=== PATIENT | female | born 1965 | race Two or more races ===

== ENCOUNTER 2017-03-21 08:29 | Emergency (ER) | payer OTHER ==
[~2017-03-21] VITALS: Ht 170.2 cm; Wt 72.6 kg
[~2017-03-21 08:29] MED LIST: FIORICET-COD 51 EACH PO; KLONOPIN0.5 MG/TAB; MUCINEX D1 TAB.SR .; PERCOCET 5/3251 TAB PO; RECTICARE30 GM TP; ULTRAM50 MG
[2017-03-21] MEDS ORDERED: ZITHROMAX TRI-500 MG PO (12:12)
[2017-03-21] MEDS ORDERED: TUSSI PRES-B L120 M1 PO (12:12)
== END 2017-03-21 12:15 | disposition home or self-care (01) ==
LOC: ER 08:29
DX: B34.9 Viral infection, unspecified (principal)

== ENCOUNTER 2017-04-05 07:48 | Outpatient (CLI) | payer OTHER ==
[~2017-04-05 07:48] MED LIST changes: +TUSSI PRES-B L120 M1 PO; +ZITHROMAX TRI-500 MG PO
== END 2017-04-05 09:23 | disposition home or self-care (01) ==
LOC: TOM 07:48
DX: R04.2 Hemoptysis (principal)

== ENCOUNTER 2017-04-07 14:18 | Emergency (ER) | payer OTHER ==
[~2017-04-07] VITALS: Ht 170.2 cm; Wt 72.6 kg
[2017-04-07] MEDS ORDERED: XELJANZ XR11 MG (14:56)
== END 2017-04-07 20:22 | disposition home or self-care (01) ==
LOC: ER 14:18
DX: B34.9 Viral infection, unspecified (principal); R51 Headache

== ENCOUNTER 2017-04-16 09:46 | Outpatient (CLI) | payer OTHER ==
[~2017-04-16 09:46] MED LIST changes: +XELJANZ XR11 MG
== END 2017-04-16 09:58 | disposition home or self-care (01) ==
LOC: RAD 09:46
DX: J45.909 Unspecified asthma, uncomplicated (principal)

== ENCOUNTER 2018-05-04 12:37 | Outpatient (CLI) | payer OTHER | END 2018-05-04 16:25 | disposition home or self-care (01) | LOC: RAD 12:37 | DX: M06.09 Rheumatoid arthritis without rheumatoid factor, multiple sites (principal) ==

== ENCOUNTER 2018-07-05 17:43 | Emergency (ER) | payer OTHER ==
[~2018-07-05] VITALS: Ht 170.2 cm; Wt 73.5 kg
[2018-07-05] MEDS ORDERED: LIPITOR20 MG (18:14)
[2018-07-05] MEDS ORDERED: MAXALT10 MG (18:17)
== END 2018-07-05 21:59 | disposition home or self-care (01) ==
LOC: ER 17:43
DX: R51 Headache (principal); R23.3 Spontaneous ecchymoses

== ENCOUNTER → 2019-01-18 | Outpatient (CLI) | payer OTHER ==
[~2019-01-18] MED LIST changes: +LIPITOR20 MG; +MAXALT10 MG
== END | disposition home or self-care (01) ==
LOC: RAD 11:03
DX: M06.09 Rheumatoid arthritis without rheumatoid factor, multiple sites (principal)

== ENCOUNTER → 2019-01-18 | Outpatient (CLI) | payer OTHER | END | disposition home or self-care (01) | LOC: NUCLEAR 12-21 07:00 | DX: R06.00 Dyspnea, unspecified (principal); I10 Essential (primary) hypertension; I20.9 Angina pectoris, unspecified | CPT/HCPCS: 78452; 93017; A9500 ==

== ENCOUNTER 2019-04-12 07:46 | Emergency (ER) | payer OTHER ==
[~2019-04-12] VITALS: Ht 170.2 cm; Wt 72.6 kg
== END 2019-04-12 11:21 | disposition home or self-care (01) ==
LOC: ER 07:46
DX: R42 Dizziness and giddiness (principal)

== ENCOUNTER → 2019-04-27 07:23 | Outpatient (CLI) | payer OTHER | END | disposition home or self-care (01) | LOC: LAB 07:23 | DX: M06.89 Other specified rheumatoid arthritis, multiple sites (principal); E78.2 Mixed hyperlipidemia; Z80.1 Family history of malignant neoplasm of trachea, bronchus and lung; Z80.3 Family history of malignant neoplasm of breast; D50.8 Other iron deficiency anemias; I10 Essential (primary) hypertension; E55.9 Vitamin D deficiency, unspecified; D51.1 Vitamin B12 deficiency anemia due to selective vitamin B12 malabsorption with proteinuria; D51.0 Vitamin B12 deficiency anemia due to intrinsic factor deficiency; E03.8 Other specified hypothyroidism; E06.3 Autoimmune thyroiditis; R97.8 Other abnormal tumor markers; R97.0 Elevated carcinoembryonic antigen [CEA]; D64.89 Other specified anemias; D68.8 Other specified coagulation defects; N72 Inflammatory disease of cervix uteri; R10.0 Acute abdomen ==

== ENCOUNTER 2019-05-08 08:00 | Outpatient (CLI) | payer OTHER | END 2019-05-08 08:11 | disposition home or self-care (01) | LOC: SONOGRAMA 08:00 | DX: E78.2 Mixed hyperlipidemia (principal); Z80.1 Family history of malignant neoplasm of trachea, bronchus and lung; Z80.3 Family history of malignant neoplasm of breast; M06.9 Rheumatoid arthritis, unspecified ==

== ENCOUNTER 2019-10-15 10:13 | Outpatient (CLI) | payer OTHER | END 2019-10-15 10:20 | disposition home or self-care (01) | LOC: SONOGRAMA 10:13 | PROVIDERS: ATTEND Pathology Anatomic Pathology & Clinical Pathology | DX: E04.1 Nontoxic single thyroid nodule (principal) ==

== ENCOUNTER 2019-10-18 10:26 | Outpatient (CLI) | payer OTHER | END 2019-10-18 10:47 | disposition home or self-care (01) | LOC: NUCLEAR 10:26 | PROVIDERS: ATTEND Internal Medicine Hematology & Oncology | DX: I87.2 Venous insufficiency (chronic) (peripheral) (principal); Z80.3 Family history of malignant neoplasm of breast; Z80.1 Family history of malignant neoplasm of trachea, bronchus and lung; D72.828 Other elevated white blood cell count; D51.3 Other dietary vitamin B12 deficiency anemia; M06.89 Other specified rheumatoid arthritis, multiple sites; E87.2 Acidosis; I73.9 Peripheral vascular disease, unspecified ==

== ENCOUNTER 2019-11-23 07:15 | Outpatient (CLI) | payer OTHER | END 2019-11-23 07:26 | disposition home or self-care (01) | LOC: LAB 07:15 | PROVIDERS: ATTEND Internal Medicine Hematology & Oncology | DX: D50.8 Other iron deficiency anemias (principal); I10 Essential (primary) hypertension; D51.8 Other vitamin B12 deficiency anemias; Z80.3 Family history of malignant neoplasm of breast; Z80.1 Family history of malignant neoplasm of trachea, bronchus and lung; D72.828 Other elevated white blood cell count; E78.2 Mixed hyperlipidemia; M06.89 Other specified rheumatoid arthritis, multiple sites ==

== ENCOUNTER 2020-04-28 08:48 | Outpatient (CLI) | payer OTHER | END 2020-04-28 09:19 | disposition home or self-care (01) | LOC: LAB 08:48 | PROVIDERS: ATTEND Specialist | DX: D68.8 Other specified coagulation defects (principal); E72.11 Homocystinuria; E72.12 Methylenetetrahydrofolate reductase deficiency; D68.59 Other primary thrombophilia ==

== ENCOUNTER 2020-05-28 14:31 | Emergency (ER) | payer OTHER ==
[~2020-05-28] VITALS: Ht 170.2 cm; Wt 74.4 kg
== END 2020-05-28 22:39 | disposition home or self-care (01) ==
LOC: ER 14:31
DX: S63.592A Other specified sprain of left wrist, initial encounter (principal); M25.532 Pain in left wrist; W01.198A Fall on same level from slipping, tripping and stumbling with subsequent striking against other object, initial encounter; Y93.89 Activity, other specified; Y92.481 Parking lot as the place of occurrence of the external cause; Y99.8 Other external cause status

== ENCOUNTER 2020-10-30 08:00 | Outpatient (CLI) | payer OTHER | END 2020-10-30 08:30 | disposition home or self-care (01) | LOC: PPH VACUNA 08:00 | DX: Z23 Encounter for immunization (principal) ==

== ENCOUNTER 2021-01-23 07:25 | Emergency (ER) | payer OTHER ==
[~2021-01-23] VITALS: Ht 170.2 cm; Wt 72.6 kg
== END 2021-01-23 12:05 | disposition home or self-care (01) ==
LOC: ER 07:25
DX: R42 Dizziness and giddiness (principal)

== ENCOUNTER 2021-07-06 08:00 | Outpatient (CLI) | payer OTHER | END 2021-07-06 08:30 | disposition home or self-care (01) | LOC: PPH VACUNA 08:00 | PROVIDERS: ATTEND Emergency Medicine Pediatric Emergency Medicine | DX: Z23 Encounter for immunization (principal) ==

== ENCOUNTER 2021-12-07 07:42 | Outpatient (CLI) | payer OTHER | END 2021-12-07 07:52 | disposition home or self-care (01) | LOC: RAD 07:42 | PROVIDERS: ATTEND Specialist | DX: M25.531 Pain in right wrist (principal); M79.641 Pain in right hand ==

== ENCOUNTER 2022-05-18 08:04 | Emergency (ER) | payer OTHER ==
[~2022-05-18] VITALS: Ht 170.2 cm; Wt 74.8 kg
== END 2022-05-18 13:11 | disposition home or self-care (01) ==
LOC: ER 08:04
DX: M25.531 Pain in right wrist (principal); M19.90 Unspecified osteoarthritis, unspecified site; Z88.6 Allergy status to analgesic agent; Z88.0 Allergy status to penicillin

== ENCOUNTER 2023-01-12 09:21 | Emergency (ER) | payer OTHER ==
[~2023-01-12] VITALS: Ht 170.2 cm; Wt 69.4 kg
[2023-01-12] MEDS ORDERED: ATORVASTATIN CA10 MG (09:28)
[2023-01-12] MEDS ORDERED: TROSPIUM CHLORI60 MG PO (09:28)
[2023-01-12 10:53] LABS: URINE APPEARANCE Cloudy; URINE BILIRRUBIN Negative (NEGATIVE); URINE BLOOD Large; URINE COLOR Yellow; URINE GLUCOSE Negative (NEGATIVE); URINE LEUKOCYTE Moderate; URINE NITRATE Negative; URINE UROBILINOGEN 0.2 E.U./dl
[2023-01-12 10:54] LABS: URINE BACTERIA 424.5 uL (0.0-1933); URINE EPITHELIAL CELLS 12.2 uL (0.0-38.8); URINE RBC 1637.7 uL (0.0-20.8); URINE WBC 1128.5 uL (0.0-23.2)
[2023-01-12 11:05] LABS: URINE PROTEIN 100 (NEGATIVE)
[2023-01-12 11:22] LABS: MEAN CORPUSCULAR HEMOGLOBIN 30.1 pg (27.00-32.0); MEAN CORPUSCULAR HGB CONC 33.5 g/dl (32.0-36.0); PLATELET COUNT 287 K/uL (150-450); RED BLOOD COUNT 4.33 M/uL (4.00-6.00); RED CELL DISTRIBUTION WIDTH 13.1 % (11.5-14.5)
== END 2023-01-12 12:31 | disposition home or self-care (01) ==
LOC: ER 09:21
DX: N39.0 Urinary tract infection, site not specified (principal); Z88.6 Allergy status to analgesic agent; Z88.0 Allergy status to penicillin

== ENCOUNTER 2023-09-08 14:46 | Outpatient (CLI) | payer OTHER ==
[~2023-09-08 14:46] MED LIST changes: +ATORVASTATIN CA10 MG; +METHOCARBAMOL500 MG PO; +TROSPIUM CHLORI60 MG PO
== END 2023-09-08 14:58 | disposition home or self-care (01) ==
LOC: MRI 14:46
DX: M25.562 Pain in left knee (principal)
CPT/HCPCS: 73718